=== PATIENT | female | born 1945 | race Caucasian/White ===

== ENCOUNTER 2019-12-17 10:29 | Inpatient (IN) | payer MEDICARE ==
[~2019-12-17] VITALS: Ht 157.5 cm; Wt 79.5 kg
[~2019-12-17 10:29] MED LIST: CALC3.7S5 NS; CHOL100014 PO; HYDR-2765 PO; IBUP200C PO; LISI1TAB20 PO; LISI1TAB37 PO; MULT-208 PO; SENN-30 PO; UBID10CA5 PO
--- NOTE | 2019-12-17 11:31 | RAD ---
HIP RIGHT 2V WITH PELVIS History: Reason: fell, right hip pain / Spl. Instructions: / History: Technique: AP view the pelvis and 2 additional views of the right hip. Comparison: None. Findings: Acute right superior pubic ramus fracture mildly displaced. Possible nondisplaced right inferior pubic ramus fracture. Normal alignment of the hips. Lower lumbar spondylosis. Impression: 1. Acute mildly displaced right superior pubic ramus fracture. 2. Possible nondisplaced right inferior pubic ramus fracture. Electronically signed by: Rian Varner DO (12/17/2019 11:29 AM) [id number]
--- NOTE | 2019-12-17 12:22 | RAD ---
CT PELVIS WO CONTRAST History: Reason: fell, right side pelvic pain / Spl. Instructions: / History: Comparison: CT abdomen pelvis August 03, 2013. Radiographs December 17, 2019 Technique: Noncontrast CT imaging was performed of the pelvis. Coronal and sagittal reconstructions were performed. Exposure: One or more of the following individualized dose reduction techniques were utilized for this examination: 1. Automated exposure control 2. Adjustment of the mA and/or kV according to patient size 3. Use of iterative reconstruction technique. Findings: Acute right periacetabular fracture extending into the right superior pubic ramus. Nondisplaced right inferior pubic ramus fracture. Acute right sacral alar nondisplaced fracture. Slight angulation of S2 anteriorly. Decompressed urinary bladder. Sigmoid colonic diverticulosis with mild infiltration of the pericolic fat. Normal appendix. No ascites. Normal alignment of the femoral heads. Grade 2 anterolisthesis L5 on S1. Advanced L5-S1 degenerative changes. Impression: 1. Acute right periacetabular fracture extending into the superior pubic ramus. 2. Acute nondisplaced right inferior pubic ramus fracture. 3. Acute right sacral alar nondisplaced fracture. 4. Sigmoid colonic diverticulosis with mild wall thickening and infiltration of the pericolic fat, may relate to prior inflammatory process. Recommend correlation with point tenderness to evaluate for acute diverticulitis. 5. Grade 2 anterolisthesis L5 on S1 with associated advanced spondylosis. Electronically signed by: Rian Varner DO (12/17/2019 12:19 PM) [id number]
[2019-12-17 12:34] LABS: BASO % 0 % (0-3); EOS % 0 % (0-3); HEMATOCRIT 39.1 % (36.0-47.0); HEMOGLOBIN 12.8 g/dL (12.0-15.5); LYMPH # 0.7 x10^3/uL (1.0-4.8); LYMPH % 4 % (24-48); MEAN CORPUSCULAR HEMOGLOBIN 26 pg (25-35); MEAN CORPUSCULAR HGB CONC 33 g/dL (31-37); MEAN CORPUSCULAR VOLUME 80 fL (79-100); MONO # 0.7 x10^3/uL (0.0-1.1); MONO % 4 % (0-9); NEUT # 15.5 x10^3/uL (1.8-7.7); NEUT % 92 % (31-73); PLATELET COUNT 215 x10^3/uL (140-400); RED BLOOD COUNT 4.91 x10^6/uL (3.50-5.40); RED CELL DISTRIBUTION WIDTH 19.2 % (11.5-14.5)
[2019-12-17] MEDS: IV NORMAL SALINE 1000ML BAG 1,000 ML IV SCH (12:40)
[2019-12-17] MEDS ORDERED: ONDANSETRON PF 4 MG/2 ML VIAL. IVP ONE (12:45)
[2019-12-17] MEDS ORDERED: ONDANSETRON PF 4 MG/2 ML VIAL. IV PRN (12:45)
[2019-12-17] MEDS ORDERED: fentaNYL PF VIAL 100 MCG/2 ML VIAL IVP ONE (12:45)
[2019-12-17 12:51] LABS: ALBUMIN 3.5 g/dL (3.4-5.0); CALCIUM 8.6 mg/dL (8.5-10.1); CREATININE 1.2 mg/dL (0.6-1.0); GFR 44.2; TOTAL BILIRUBIN 0.7 mg/dL (0.2-1.0); TOTAL PROTEIN 7.1 g/dL (6.4-8.2)
[2019-12-17 12:53] LABS: POTASSIUM 2.9 mmol/L (3.5-5.1)
[2019-12-17 13:04] LABS: % BANDS 4 % (0-9); % LYMPHS 4 % (24-48); % MONOS 3 % (0-10); % SEGS 89 % (35-66); ANISOCYTOSIS SLIGHT; PLT ESTIMATE ADEQUATE (ADEQUATE)
[2019-12-17 13:26] LABS: PROTHROMBIN TIME PATIENT 12.6 SEC (11.7-14.0)
[2019-12-17] MEDS ORDERED: POTASSIUM CL 40MEQ IN 0.9%NACL 1,000 ML IV ONE (13:45)
--- NOTE | 2019-12-17 15:35 | PHYS DOC ---
Past Medical History Past Medical History: Hypertension, Other Additional Past Medical Histor: CATARACT Past Surgical History: Cholecystectomy, Other Additional Past Surgical Histo: RIGHT EYE CATARACT, LEFT EYELID Smoking Status: Never Smoker Alcohol Use: Rarely Drug Use: None General Adult EDM: Chief Complaint: HIP PAIN HPI: HPI: Patient is a 74 year old female who was brought here by EMS due to right side pelvic pain after she fell at [facility] restaurant this morning. Patient had colonoscopy earlier this morning at [facility], she was on the way home, she [facility], she is stepped over a curb and tripped and fell down her right hip. Patient denies any head or neck injury, no back pain. Patient is complaining of pain inside her right groin area. Patient denies any numbness or weakness in her extremity, denies any bowel bladder incontinence. Patient is not on any blood thinner. Review of Systems: Review of Systems: Constitutional: Denies fever or chills. [] Eyes: Denies change in visual acuity. [] HENT: Denies nasal congestion or sore throat. [] Respiratory: Denies cough or shortness of breath. [] Cardiovascular: Denies chest pain or edema. [] GI: Denies abdominal pain, nausea, vomiting, bloody stools or diarrhea. [] : Denies dysuria. [] Musculoskeletal: Positive for right hip pain, right pelvic pain. Integument: Denies rash. [] Neurologic: Denies headache, focal weakness or sensory changes. [] Endocrine: Denies polyuria or polydipsia. [] Lymphatic: Denies swollen glands. [] Psychiatric: Denies depression or anxiety. [] Heart Score: Risk Factors: Risk Factors: DM, Current or recent (<one month) smoker, HTN, HLP, family history of CAD, obesity. Risk Scores: Score 0 - 3: 2.5% MACE over next 6 weeks - Discharge Home Score 4 - 6: 20.3% MACE over next 6 weeks - Admit for Clinical Observation Score 7 - 10: 72.7% MACE over next 6 weeks - Early Invasive Strategies Current Medications: Current Medications Medications (Trade) Dose Ordered Sig/Dc Start Time Stop Time Status Last Admin Dose Admin Fentanyl Citrate (Fentanyl 2ml Vial) 50 mcg PRN Q1HR PRN 12/17/19 12:45 12/18/19 12:44 Ondansetron HCl (Zofran) 4 mg PRN Q8HRS PRN 12/17/19 12:45 12/18/19 12:44 Potassium Chloride/Sodium Chloride 1,000 ml @ 75 mls/hr [id number] ONCE 12/17/19 13:45 12/18/19 03:04 12/17/19 13:56 75 MLS/HR Sodium Chloride 1,000 ml @ 75 mls/hr [id number] 12/17/19 12:40 12/18/19 12:39 12/17/19 12:40 75 MLS/HR Allergies: Allergies: Allergies Coded Allergies Type Severity Reaction Last Updated Verified No Known Drug Allergies 08/02/13 No Physical Exam: PE: Constitutional: Well developed, well nourished, no acute distress, non-toxic appearance. [] HENT: Normocephalic, atraumatic, bilateral external ears normal, oropharynx moist, no oral exudates, nose normal. [] Eyes: PERRLA, EOMI, conjunctiva normal, no discharge. [] Neck: Normal range of motion, no tenderness, supple, no stridor. [] Cardiovascular:Heart rate regular rhythm, no murmur [] Lungs & Thorax: Bilateral breath sounds clear to auscultation [] Abdomen: Bowel sounds normal, soft, no tenderness, no masses, no pulsatile masses. [] Skin: Warm, dry, no erythema, no rash. [] Back: No tenderness, no CVA tenderness. [] Extremities: No tenderness, no cyanosis, no clubbing, ROM intact, no edema. Right side pelvic is tender to palpation . Neurologic: Alert and oriented X 3, normal motor function, normal sensory function, no focal deficits noted. [] Psychologic: Affect normal, judgement normal, mood normal. [] Current Patient Data: Labs: Laboratory Tests Test 12/17/19 12:15 12/17/19 13:10 White Blood Count 17.0 x10^3/uL (4.0-11.0) H Red Blood Count 4.91 x10^6/uL (3.50-5.40) Hemoglobin 12.8 g/dL (12.0-15.5) Hematocrit 39.1 % (36.0-47.0) Mean Corpuscular Volume 80 fL (79-100) Mean Corpuscular Hemoglobin 26 pg (25-35) Mean Corpuscular Hemoglobin Concent 33 g/dL (31-37) Red Cell Distribution Width 19.2 % (11.5-14.5) H Platelet Count 215 x10^3/uL (140-400) Neutrophils (%) (Auto) 92 % (31-73) H Lymphocytes (%) (Auto) 4 % (24-48) L Monocytes (%) (Auto) 4 % (0-9) Eosinophils (%) (Auto) 0 % (0-3) Basophils (%) (Auto) 0 % (0-3) Neutrophils # (Auto) 15.5 x10^3/uL (1.8-7.7) H Lymphocytes # (Auto) 0.7 x10^3/uL (1.0-4.8) L Monocytes # (Auto) 0.7 x10^3/uL (0.0-1.1) Eosinophils # (Auto) 0.0 x10^3/uL (0.0-0.7) Basophils # (Auto) 0.0 x10^3/uL (0.0-0.2) Segmented Neutrophils % 89 % (35-66) H Band Neutrophils % 4 % (0-9) Lymphocytes % 4 % (24-48) L Monocytes % 3 % (0-10) Platelet Estimate Adequate (ADEQUATE) Anisocytosis Slight Sodium Level 136 mmol/L (136-145) Potassium Level 2.9 mmol/L (3.5-5.1) *L Chloride Level 99 mmol/L (98-107) Carbon Dioxide Level 28 mmol/L (21-32) Anion Gap 9 (6-14) Blood Urea Nitrogen 15 mg/dL (7-20) Creatinine 1.2 mg/dL (0.6-1.0) H Estimated GFR (Cockcroft-Gault) 44.2 BUN/Creatinine Ratio 13 (6-20) Glucose Level 166 mg/dL (70-99) H Calcium Level 8.6 mg/dL (8.5-10.1) Total Bilirubin 0.7 mg/dL (0.2-1.0) Aspartate Amino Transferase (AST) 28 U/L (15-37) Alanine Aminotransferase (ALT) 24 U/L (14-59) Alkaline Phosphatase 84 U/L (46-116) Total Protein 7.1 g/dL (6.4-8.2) Albumin 3.5 g/dL (3.4-5.0) Albumin/Globulin Ratio 1.0 (1.0-1.7) Prothrombin Time 12.6 SEC (11.7-14.0) Prothrombin Time INR 1.0 (0.8-1.1) Activated Partial Thromboplast Time 20 SEC (24-38) L Laboratory Tests 12/17/19 12:15 Laboratory Tests 12/17/19 12:15 Vital Signs: Vital Signs Date Time Temp Pulse Resp B/P (MAP) Pulse Ox O2 Delivery O2 Flow Rate FiO2 12/17/19 13:19 21 95 Room Air 12/17/19 10:35 98.2 84 137/61 (86) 98.2 EKG: EKG: [] Radiology/Procedures: Radiology/Procedures: [][address] [address] IMAGING REPORT Signed PATIENT: JOSHUA GAFFNEY ACCOUNT: [id number] : 1945 LOCATION: ER AGE: 74 SEX: F EXAM STATUS: PRE ER ORD. PHYSICIAN: STANTON BOURGEOIS DO REASON: fell, right hip pain PROCEDURE: HIP RIGHT 2V WITH PELVIS HIP RIGHT 2V WITH PELVIS History: Reason: fell, right hip pain / Spl. Instructions: / History: Technique: AP view the pelvis and 2 additional views of the right hip. Comparison: None. Findings: Acute right superior pubic ramus fracture mildly displaced. Possible nondisplaced right inferior pubic ramus fracture. Normal alignment of the hips. Lower lumbar spondylosis. Impression: 1. Acute mildly displaced right superior pubic ramus fracture. 2. Possible nondisplaced right inferior pubic ramus fracture. Electronically signed by: Rian Varner DO (12/17/2019 11:29 AM) [id number] DICTATED and SIGNED BY: RIAN VARNER DO DATE: 12/17/19 [id number] [place] [address] IMAGING REPORT Signed PATIENT: JOSHUA GAFFNEY ACCOUNT: [id number] : 1945 LOCATION: ER AGE: 74 SEX: F EXAM STATUS: REG ER ORD. PHYSICIAN: STANTON BOURGEOIS DO REASON: fell, right side pelvic pain PROCEDURE: CT PELVIS WO CONTRAST CT PELVIS WO CONTRAST History: Reason: fell, right side pelvic pain / Spl. Instructions: / History: Comparison: CT abdomen pelvis August 03, 2013. Radiographs December 17, 2019 Technique: Noncontrast CT imaging was performed of the pelvis. Coronal and sagittal reconstructions were performed. Exposure: One or more of the following individualized dose reduction techniques were utilized for this examination: 1. Automated exposure control 2. Adjustment of the mA and/or kV according to patient size 3. Use of iterative reconstruction technique. Findings: Acute right periacetabular fracture extending into the right superior pubic ramus. Nondisplaced right inferior pubic ramus fracture. Acute right sacral alar nondisplaced fracture. Slight angulation of S2 anteriorly. Decompressed urinary bladder. Sigmoid colonic diverticulosis with mild infiltration of the pericolic fat. Normal appendix. No ascites. Normal alignment of the femoral heads. Grade 2 anterolisthesis L5 on S1. Advanced L5-S1 degenerative changes. Impression: 1. Acute right periacetabular fracture extending into the superior pubic ramus. 2. Acute nondisplaced right inferior pubic ramus fracture. 3. Acute right sacral alar nondisplaced fracture. 4. Sigmoid colonic diverticulosis with mild wall thickening and infiltration of the pericolic fat, may relate to prior inflammatory process. Recommend correlation with point tenderness to evaluate for acute diverticulitis. 5. Grade 2 anterolisthesis L5 on S1 with associated advanced spondylosis. Electronically signed by: Rian Varner DO (12/17/2019 12:19 PM) [id number] DICTATED and SIGNED BY: RIAN VARNER DO DATE: 12/17/19 1219 Course & Med Decision Making: Course & Med Decision Making Pertinent Labs and Imaging studies reviewed. (See chart for details) Discussed with orthopedic doctor cotton tier Dr. Olivares, recommended admit for pain control. Dragon Disclaimer: Dragon Disclaimer: This electronic medical record was generated, in whole or in part, using a voice recognition dictation system. Departure Departure Impression: Primary Impression: Closed right acetabular fracture Additional Impressions: Closed pelvic fracture Hypokalemia Disposition: ADMITTED INPATIENT Admitting Physician: Christie Small Condition: STABLE Referrals: CHRISTIE SMALL MD (PCP) Justicifation of Admission Dx: Justifications for Admission: Justification of Admission Dx: Yes Fracture: Fracture STANTON BOURGEOIS DO Dec 17, 2019 15:35
[2019-12-17 16:50] VITALS: BP 143/69
[2019-12-17] MEDS ORDERED: LOSA1TAB22 PO (18:15)
[2019-12-17] MEDS ORDERED: ACET500T68 PO (18:15)
[2019-12-17] MEDS ORDERED: AMLO2.5T5 PO (18:15)
[2019-12-17] MEDS: fentaNYL PF VIAL 100 MCG/2 ML VIAL IV PRN (18:24)
[2019-12-17 19:00] VITALS: BP 124/73
[2019-12-17 23:00] VITALS: BP 147/70
[2019-12-18] MEDS: IV NORMAL SALINE 1000ML BAG 1,000 ML IV SCH (02:00)
[2019-12-18 03:00] VITALS: BP 120/56
[2019-12-18 07:15] VITALS: BP 119/51
--- NOTE | 2019-12-18 08:44 | PDOC ---
Provider Note Provider Note [id number] Justicifation of Admission Dx: Justifications for Admission: Justification of Admission Dx: Yes Fracture: Fracture CHRISTIE SMALL MD Dec 18, 2019 08:44
--- NOTE | 2019-12-18 08:58 | PDOC2 ---
CONSULT Date of Consult Date of Consult DATE: 12/18/19 TIME: 08:55 Reason for Consult Reason for Consult: Right-sided pelvis fractures Referring Physician Referring Physician: Pieter Identification/Chief Complaint Chief Complaint Right hip pain Source Source: Patient History of Present Illness Reason for Visit: Right hip pain Past Medical History Cardiovascular: HTN Pulmonary: No pertinent hx GI: No pertinent hx Heme/Onc: No pertinent hx Hepatobiliary: No pertinent hx Psych: No pertinent hx Musculoskeletal: low back pain Renal/: No pertinent hx Endocrine: No pertinent hx Past Surgical History Past Surgical History: Cholecystectomy, Cataract Removal Social History No ALCOHOL: rare Current Problem List Problem List Problems Medical Problems: (1) Closed pelvic fracture Status: Acute (2) Closed right acetabular fracture Status: Acute (3) Hypokalemia Status: Acute Current Medications Current Medications Current Medications Fentanyl Citrate (Fentanyl 2ml Vial) 50 mcg 1X ONCE IVP Last administered on 12/17/19at 13:19; Start 12/17/19 at 12:45; Stop 12/17/19 at 12:55; Status DC Ondansetron HCl (Zofran) 4 mg 1X ONCE IVP Last administered on 12/17/19at 13:18; Start 12/17/19 at 12:45; Stop 12/17/19 at 12:55; Status DC Ondansetron HCl (Zofran) 4 mg PRN Q8HRS PRN IV NAUSEA/VOMITING; Start 12/17/19 at 12:45; Stop 12/18/19 at 12:44 Fentanyl Citrate (Fentanyl 2ml Vial) 50 mcg PRN Q1HR PRN IV PAIN Last administered on 12/17/19at 18:24; Start 12/17/19 at 12:45; Stop 12/18/19 at 12:44 Sodium Chloride 1,000 ml @ 75 mls/hr [id number] IV Last administered on 12/18/19at 02:00; Start 12/17/19 at 12:40; Stop 12/18/19 at 08:43; Status DC Potassium Chloride/Sodium Chloride 1,000 ml @ 75 mls/hr [id number] ONCE IV Last administered on 12/17/19at 13:56; Start 12/17/19 at 13:45; Stop 12/18/19 at 08:43; Status DC Acetaminophen (Tylenol) 500 mg PRN Q6HRS PRN PO PAIN / TEMP > 100.3'F; Start 12/17/19 at 19:15 Amlodipine Besylate (Norvasc) 2.5 mg DAILY PO ; Start 12/18/19 at 09:00 Vitamin D (Vitamin D3) 1,000 unit DAILY PO ; Start 12/18/19 at 09:00 Losartan Potassium (Cozaar) 100 mg DAILY PO ; Start 12/18/19 at 09:00 Multivitamins (Thera M Plus) 1 tab DAILY PO ; Start 12/18/19 at 09:00 Potassium Chloride (Klor-Con) 10 meq TIDAFTMEAL PO ; Start 12/18/19 at 09:00; Stop 12/20/19 at 09:00 Hydrochlorothiazide (Hydrodiuril) 25 mg DAILY PO ; Start 12/18/19 at 09:00 Active Scripts Active Reported Acetaminophen 500 Mg Tablet 1 Tab PO PRN Q6HRS PRN 15 Days Amlodipine Besylate 2.5 Mg Tablet 2.5 Mg PO DAILY Losartan-Hctz 100-25 Mg Tab (Losartan/Hydrochlorothiazide) 1 Each Tablet 1 Tab PO DAILY Ibuprofen 200 Mg Capsule 200 Mg PO PRN Multi-Day Vitamins (Multivitamin) 1 Each Tablet 1 Each PO DAILY Vitamin D3 (Cholecalciferol (Vitamin D3)) 1,000 Unit Capsule 1,000 Unit PO DAILY Allergies Allergies: Coded Allergies: No Known Drug Allergies (Unverified , 08/02/13) ROS General: No: Chills, Night Sweats, Fatigue, Malaise, Appetite, Other PSYCHOLOGICAL ROS: No: Anxiety, Behavioral Disorder, Concentration difficultie, Decreased libido, Depression, Disorientation, Hallucinations, Hostility, Irritablity, Memory difficulties, Mood Swings, Obsessive thoughts, Physical abuse, Sexual abuse, Sleep disturbances, Suicidal ideation, Other Eyes: No Blurry vision, No Decreased vision, No Double vision, No Dry eyes, No Excessive tearing, No Eye Pain, No Itchy Eyes, No Loss of vision, No Photophobia, No Scotomata, No Uses contacts, No Uses glasses, No Other HEENT: No: Heacaches, Visual Changes, Hearing change, Nasal congestion, Nasal discharge, Oral lesions, Sinus pain, Sore Throat, Epistaxis, Sneezing, Snoring, Tinnitus, Vertigo, Vocal changes, Other ALLERGY AND IMMUNOLOGY: No: Hives, Insect Bite Sensitivity, Itchy/Watery Eyes, Nasal Congestion, Post Nasal Drip, Seasonal Allergies, Other Hematological and Lymphatic: No: Bleeding Problems, Blood Clots, Blood Transfusions, Brusing, Night Sweats, Pallor, Swollen Lymph Nodes, Other ENDOCRINE: No: Breast Changes, Galactorrhea, Hair Pattern Changes, Hot Flashes, Malaise/lethargy, Mood Swings, Palpitations, Polydipsia/polyuria, Skin Changes, Temperature Intolerance, Unexpected Weight Changes, Other Respiratory: No: Cough, Hemoptysis, Orthopnea, Pleuritic Pain, Shortness of breath, SOB with excertion, Sputum Changes, Stridor, Tachypnea, Wheezing, Other Cardiovascular: No Chest Pain, No Palpitations, No Orthopnea, No Paroxysmal Noc. Dyspnea, No Edema, No Lt Headedness, No Other Gastrointestinal: No Nausea, No Vomiting, No Abdominal Pain, No Diarrhea, No Constipation, No Melena, No Hematochezia, No Other Genitourinary: No Dysuria, No Frequency, No Incontinence, No Hematuria, No Retention, No Discharge, No Urgency, No Pain, No Flank Pain, No Other, No , No , No , No , No , No , No Musculoskeletal: Yes Gait Disturbance, Yes Joint Pain Neurological: No Behavorial Changes, No Bowel/Bladder ControlChng, No Confusion, No Dizziness, No Gait Disturbance, No Headaches, No Impaired Coord/balance, No Memory Loss, No Numbness/Tingling, No Seizures, No Speech Problems, No Tremors, No Visual Changes, No Weakness, No Other Skin: No Dry Skin, No Eczema, No Hair Changes, No Lumps, No Mole Changes, No Mottling, No Nail Changes, No Pruritus, No Rash, No Skin Lesion Changes, No Other, No Acne Physical Exam General: Alert, Oriented X3 HEENT: Atraumatic, EOMI Lungs: Other (Respirations are unlabored with symmetric chest rise) Heart: Regular rate Abdomen: Soft, No tenderness Extremities: No edema, Normal pulses Skin: No rashes Neuro: Normal speech, Strength at 5/5 X4 ext, Sensation intact Psych/Mental Status: Mental status NL, Mood NL MUSCULOSKELETAL: Other (On examination, she has no tenderness around her l ateral hip, she has some tenderness anteriorly, none over her sacrum and posterior pelvis. Normal motor and sensation are present in her bilateral lower extremities, no gross deformity. She has pain in her anterior pelvis and hip region with any movement of her hip on the right side.) Vitals VITALS Vital Signs Date Time Temp Pulse Resp B/P (MAP) Pulse Ox O2 Delivery O2 Flow Rate FiO2 12/18/19 08:00 Nasal Cannula 2.0 12/18/19 07:15 98.6 84 18 119/51 (73) 96 98.6 Labs Labs Laboratory Tests Test 12/17/19 12:15 12/17/19 13:10 White Blood Count 17.0 x10^3/uL (4.0-11.0) Red Blood Count 4.91 x10^6/uL (3.50-5.40) Hemoglobin 12.8 g/dL (12.0-15.5) Hematocrit 39.1 % (36.0-47.0) Mean Corpuscular Volume 80 fL (79-100) Mean Corpuscular Hemoglobin 26 pg (25-35) Mean Corpuscular Hemoglobin Concent 33 g/dL (31-37) Red Cell Distribution Width 19.2 % (11.5-14.5) Platelet Count 215 x10^3/uL (140-400) Neutrophils (%) (Auto) 92 % (31-73) Lymphocytes (%) (Auto) 4 % (24-48) Monocytes (%) (Auto) 4 % (0-9) Eosinophils (%) (Auto) 0 % (0-3) Basophils (%) (Auto) 0 % (0-3) Neutrophils # (Auto) 15.5 x10^3/uL (1.8-7.7) Lymphocytes # (Auto) 0.7 x10^3/uL (1.0-4.8) Monocytes # (Auto) 0.7 x10^3/uL (0.0-1.1) Eosinophils # (Auto) 0.0 x10^3/uL (0.0-0.7) Basophils # (Auto) 0.0 x10^3/uL (0.0-0.2) Segmented Neutrophils % 89 % (35-66) Band Neutrophils % 4 % (0-9) Lymphocytes % 4 % (24-48) Monocytes % 3 % (0-10) Platelet Estimate Adequate (ADEQUATE) Anisocytosis Slight Sodium Level 136 mmol/L (136-145) Potassium Level 2.9 mmol/L (3.5-5.1) Chloride Level 99 mmol/L (98-107) Carbon Dioxide Level 28 mmol/L (21-32) Anion Gap 9 (6-14) Blood Urea Nitrogen 15 mg/dL (7-20) Creatinine 1.2 mg/dL (0.6-1.0) Estimated GFR (Cockcroft-Gault) 44.2 BUN/Creatinine Ratio 13 (6-20) Glucose Level 166 mg/dL (70-99) Calcium Level 8.6 mg/dL (8.5-10.1) Total Bilirubin 0.7 mg/dL (0.2-1.0) Aspartate Amino Transf (AST/SGOT) 28 U/L (15-37) Alanine Aminotransferase (ALT/SGPT) 24 U/L (14-59) Alkaline Phosphatase 84 U/L (46-116) Total Protein 7.1 g/dL (6.4-8.2) Albumin 3.5 g/dL (3.4-5.0) Albumin/Globulin Ratio 1.0 (1.0-1.7) Prothrombin Time 12.6 SEC (11.7-14.0) Prothromb Time International Ratio 1.0 (0.8-1.1) Activated Partial Thromboplast Time 20 SEC (24-38) Laboratory Tests Test 12/17/19 12:15 12/17/19 13:10 White Blood Count 17.0 x10^3/uL (4.0-11.0) Red Blood Count 4.91 x10^6/uL (3.50-5.40) Hemoglobin 12.8 g/dL (12.0-15.5) Hematocrit 39.1 % (36.0-47.0) Mean Corpuscular Volume 80 fL (79-100) Mean Corpuscular Hemoglobin 26 pg (25-35) Mean Corpuscular Hemoglobin Concent 33 g/dL (31-37) Red Cell Distribution Width 19.2 % (11.5-14.5) Platelet Count 215 x10^3/uL (140-400) Neutrophils (%) (Auto) 92 % (31-73) Lymphocytes (%) (Auto) 4 % (24-48) Monocytes (%) (Auto) 4 % (0-9) Eosinophils (%) (Auto) 0 % (0-3) Basophils (%) (Auto) 0 % (0-3) Neutrophils # (Auto) 15.5 x10^3/uL (1.8-7.7) Lymphocytes # (Auto) 0.7 x10^3/uL (1.0-4.8) Monocytes # (Auto) 0.7 x10^3/uL (0.0-1.1) Eosinophils # (Auto) 0.0 x10^3/uL (0.0-0.7) Basophils # (Auto) 0.0 x10^3/uL (0.0-0.2) Segmented Neutrophils % 89 % (35-66) Band Neutrophils % 4 % (0-9) Lymphocytes % 4 % (24-48) Monocytes % 3 % (0-10) Platelet Estimate Adequate (ADEQUATE) Anisocytosis Slight Sodium Level 136 mmol/L (136-145) Potassium Level 2.9 mmol/L (3.5-5.1) Chloride Level 99 mmol/L (98-107) Carbon Dioxide Level 28 mmol/L (21-32) Anion Gap 9 (6-14) Blood Urea Nitrogen 15 mg/dL (7-20) Creatinine 1.2 mg/dL (0.6-1.0) Estimated GFR (Cockcroft-Gault) 44.2 BUN/Creatinine Ratio 13 (6-20) Glucose Level 166 mg/dL (70-99) Calcium Level 8.6 mg/dL (8.5-10.1) Total Bilirubin 0.7 mg/dL (0.2-1.0) Aspartate Amino Transf (AST/SGOT) 28 U/L (15-37) Alanine Aminotransferase (ALT/SGPT) 24 U/L (14-59) Alkaline Phosphatase 84 U/L (46-116) Total Protein 7.1 g/dL (6.4-8.2) Albumin 3.5 g/dL (3.4-5.0) Albumin/Globulin Ratio 1.0 (1.0-1.7) Prothrombin Time 12.6 SEC (11.7-14.0) Prothromb Time International Ratio 1.0 (0.8-1.1) Activated Partial Thromboplast Time 20 SEC (24-38) Images Images X-rays and CT were interpreted by myself. Reports were reviewed. She has a right pubic root fracture, right inferior ramus fracture, nondisplaced sacral fracture Assessment/Plan Assessment/Plan Given her injuries, I recommended toe-touch weightbearing, with PT assessment and OT assessment as well. I would anticipate she will need rehab given she lives alone. I would also recommend anticoagulation. PAOLA SCRUGGS II, MD Dec 18, 2019 08:58
--- NOTE | 2019-12-18 09:39 | HP ---
ADMIT DATE: CHIEF COMPLAINT: Fall. HISTORY OF PRESENT ILLNESS: This 74-year-old white female had just completed a colonoscopy and was in a restaurant, tripped and fell and landed hard on her rear end. She had pain and came to the ER and had a right-sided pelvic fracture and sacral fracture. Dr. Maki seen her and recommended limited activity and rehabilitation, and she is stable with no other complaints at this time. Potassium was low and has been replaced with some IV so far. PAST HISTORY: Listed per the chart. MEDICATIONS: Listed per the chart. ALLERGIES: No allergies. No other serious medical problems. SOCIAL HISTORY: Single, employed, nondrinker, nonsmoker. FAMILY HISTORY: Unremarkable. REVIEW OF SYSTEMS: No other complaints. OBJECTIVE: ENT: She has left-sided ptosis. Otherwise, unremarkable. NECK: No masses, nodes or bruits. LUNGS: Clear. CARDIOVASCULAR: Regular rate. No irregular beat or murmur. ABDOMEN: Benign and nontender. Pelvis is tender in the right groin area. EXTREMITIES: Right leg motion was not tested due to pain. Extremities show good pedal pulses. NEUROLOGIC: Physiologic, nonfocal. ASSESSMENT: Fall with secondary fracture of the right superior and inferior pubic ramus and sacrum. She has mild hypokalemia, likely secondary to colonoscopy prep. PLAN: Replace potassium orally. Add low dose Xarelto for DVT prophylaxis. Rehab will be needed. CHRISTIE SMALL MD DR: MICHELE/casandra JOB#: [id number] / [id number]
[2019-12-18] MEDS: POTASSIUM CHLORIDE 10 MEQ TABLET.ER. PO SCH ×3 (10:03→17:13)
[2019-12-18] MEDS: CHOLECALCIFEROL (VITAMIN D3) 1,000 UNIT TABLET PO SCH (10:04)
[2019-12-18] MEDS: LOSARTAN POTASSIUM 50 MG TABLET. PO SCH (10:04)
[2019-12-18] MEDS: hydroCHLOROthiazide 25 MG TABLET PO SCH (10:04)
[2019-12-18] MEDS: MULTIVITAMIN with MINERAL TABLET. PO SCH (10:04)
[2019-12-18] MEDS: amLODIPine BESYLATE 5 MG TABLET PO SCH (10:04)
[2019-12-18] MEDS: fentaNYL PF VIAL 100 MCG/2 ML VIAL IV PRN (10:05)
[2019-12-18 11:04] VITALS: BP 131/55
--- NOTE | 2019-12-18 11:29 | NUR ---
SW following. Discussed with RN, pt from home alone, non surgical. PT/OT ordered. SW will continue to follow. COVID-19 pending.
[2019-12-18] MEDS: ACETAMINOPHEN 500 MG TABLET PO PRN (13:31)
[2019-12-18 15:09] VITALS: BP 119/51
[2019-12-18] MEDS ORDERED: ENOXAPARIN 40 MG/0.4 ML SYRINGE. SQ SCH (16:00)
[2019-12-18] MEDS: HYDROcodone/APAP 5/325MG 1 TAB TABLET PO PRN (17:13)
[2019-12-18 19:00] VITALS: BP 111/59
[2019-12-18 23:00] VITALS: BP 119/51
[2019-12-19] MEDS: ACETAMINOPHEN 500 MG TABLET PO PRN (02:43)
[2019-12-19 03:00] VITALS: BP 102/52
[2019-12-19 07:00] VITALS: BP 111/59
--- NOTE | 2019-12-19 08:02 | PDOC ---
Provider Note Provider Note no new problems, pain ok- rehab when available Justicifation of Admission Dx: Justifications for Admission: Justification of Admission Dx: Yes Fracture: Fracture CHRISTIE SMALL MD Dec 19, 2019 08:02
[2019-12-19] MEDS ORDERED: ANTI-COAG MONITOR BY PHARMACY. MC PRN (08:45)
--- NOTE | 2019-12-19 09:17 | NUR ---
ELISE following. Discussed with RN, PT/OT to work with pt today. Pt will have 3 midnights on Tuesday12/21/2019 for transfer to SNU, if needed. ELISE will continue to follow. Addendum: 12/19/19 at 1515 by FLO OLIVARES PT/OT recommending SNU. ELISE met with pt (no isolation precautions at the time), pt requested ELISE contactMadonna ([phone]) to discuss SNU options. ELISE spoke with Madonna, she wanted ELISE to find out about COVID-19 at [facility], [facility], and [facility]. ELISE contacted [facility], they do not have any beds available until mid next week. [facility] advised of the one staff member who was positive, and everyone in the building testing negative, two week quarantine will be completed tomorrow (12/20/2019). [facility] has not responded to ELISE. ELISE notified Madonna of above information, she would like ELISE to call when [facility] responds so she can make a decision. ELISE will continue to follow.
[2019-12-19] MEDS: CHOLECALCIFEROL (VITAMIN D3) 1,000 UNIT TABLET PO SCH (09:28)
[2019-12-19] MEDS: LOSARTAN POTASSIUM 50 MG TABLET. PO SCH (09:29)
[2019-12-19] MEDS: hydroCHLOROthiazide 25 MG TABLET PO SCH (09:29)
[2019-12-19] MEDS: HYDROcodone/APAP 5/325MG 1 TAB TABLET PO PRN ×3 (09:29→17:39)
[2019-12-19] MEDS: POTASSIUM CHLORIDE 10 MEQ TABLET.ER. PO SCH ×3 (09:29→17:39)
[2019-12-19] MEDS: amLODIPine BESYLATE 5 MG TABLET PO SCH (09:29)
[2019-12-19] MEDS: MULTIVITAMIN with MINERAL TABLET. PO SCH (09:29)
[2019-12-19 10:19] LABS: BASO % 0 % (0-3); EOS # 0.2 x10^3/uL (0.0-0.7); EOS % 2 % (0-3); HEMATOCRIT 35.5 % (36.0-47.0); HEMOGLOBIN 11.9 g/dL (12.0-15.5); LYMPH % 11 % (24-48); MEAN CORPUSCULAR HEMOGLOBIN 27 pg (25-35); MEAN CORPUSCULAR HGB CONC 34 g/dL (31-37); MEAN CORPUSCULAR VOLUME 80 fL (79-100); MONO # 0.7 x10^3/uL (0.0-1.1); MONO % 7 % (0-9); NEUT # 7.8 x10^3/uL (1.8-7.7); NEUT % 80 % (31-73); PLATELET COUNT 162 x10^3/uL (140-400); RED BLOOD COUNT 4.45 x10^6/uL (3.50-5.40); RED CELL DISTRIBUTION WIDTH 18.9 % (11.5-14.5); WHITE BLOOD COUNT 9.7 x10^3/uL (4.0-11.0)
[2019-12-19 10:42] LABS: CALCIUM 8.6 mg/dL (8.5-10.1); GFR 54.5; POTASSIUM 3.5 mmol/L (3.5-5.1)
[2019-12-19 11:00] VITALS: BP 158/56
[2019-12-19 15:00] VITALS: BP 112/63
--- NOTE | 2019-12-19 16:10 | NUR ---
SS following up with discharge planning. Brandy OLIVARES, received phone contact from Madonna requesting referral be phoned and faxed to [facility], ; fax [phone]. SS phoned and faxed referral to [facility]. SS will await acceptance decision and will proceed accordingly.
[2019-12-19] MEDS ORDERED: RIVAROXABAN 10 MG TABLET. PO SCH (17:00)
[2019-12-19] MEDS ORDERED: POLYETHYLENE GLYCOL 3350 17 GM PACKET. PO PRN (18:00)
[2019-12-19 19:00] VITALS: BP 110/59
[2019-12-19 23:00] VITALS: BP 131/58
[2019-12-20 03:00] VITALS: BP 128/61
[2019-12-20 07:00] VITALS: BP 122/41
--- NOTE | 2019-12-20 08:09 | PDOC ---
Provider Note Provider Note stable , bp good, will add miralax- K+ better , rest same Justicifation of Admission Dx: Justifications for Admission: Justification of Admission Dx: Yes Fracture: Fracture CHRISTIE SMALL MD Dec 20, 2019 08:09
[2019-12-20] MEDS: CHOLECALCIFEROL (VITAMIN D3) 1,000 UNIT TABLET PO SCH (08:13)
[2019-12-20] MEDS: POTASSIUM CHLORIDE 10 MEQ TABLET.ER. PO SCH (08:13)
[2019-12-20] MEDS: MULTIVITAMIN with MINERAL TABLET. PO SCH (08:13)
[2019-12-20] MEDS: hydroCHLOROthiazide 25 MG TABLET PO SCH (08:13)
[2019-12-20] MEDS: LOSARTAN POTASSIUM 50 MG TABLET. PO SCH (08:14)
[2019-12-20] MEDS ORDERED: MAGNESIUM HYDROXIDE 2,400 MG/30 ML ORAL.SUSP. PO PRN (08:15)
[2019-12-20] MEDS: amLODIPine BESYLATE 5 MG TABLET PO SCH (08:16)
--- NOTE | 2019-12-20 08:16 | SNU/HH DC ---
DISCHARGE ORDERS DISCHARGE INFORMATION: FINAL DIAGNOSIS Problems Medical Problems: (1) Closed pelvic fracture Status: Acute (2) Closed right acetabular fracture Status: Acute (3) Hypokalemia Status: Acute CONDITION ON DISCHARGE: Stable CODE STATUS: Code Status: Full PRISON: SNF STAY <30 DAYS: Yes POST DISCHARGE ORDERS: ACTIVITY ORDERS: Activity as tolerated DIET AFTER DISCHARGE: Regular DISCHARGE MEDICATIONS: Home Meds Reported Medications Acetaminophen (ACETAMINOPHEN) 500 Mg Tablet, 1 TAB PO PRN Q6HRS PRN for pain or fever for 15 Days, #60 TAB 0 Refills 12/17/19 Amlodipine Besylate (AMLODIPINE BESYLATE) 2.5 Mg Tablet, 2.5 MG PO DAILY for htn, TAB 12/17/19 Losartan/Hydrochlorothiazide (LOSARTAN-HCTZ 100-25 MG TAB) 1 Each Tablet, 1 TAB PO DAILY for HTN, #30 TAB 5 Refills 12/17/19 Ibuprofen (IBUPROFEN) 200 Mg Capsule, 200 MG PO PRN 08/02/13 Multivitamin (MULTI-DAY VITAMINS) 1 Each Tablet, 1 EACH PO DAILY 08/02/13 Cholecalciferol (Vitamin D3) (VITAMIN D3) 1,000 Unit Capsule, 1000 UNIT PO DAILY 08/02/13 Discontinued Reported Medications Lisinopril/Hydrochlorothiazide (LISINOPRIL-HCTZ 20-12.5 MG TAB) 1 Each Tablet, 1 EACH PO DAILY 08/08/13 Sennosides/Docusate Sodium (MARY LOU-COLACE TABLET) 1 Each Tablet, 1 EACH PO BID 08/02/13 Calcitonin,[place],Synthetic (CALCITONIN-SALMON) 3.7 Ml [place].pump, 3.7 ML NS DAILY 08/02/13 Hydrocodone Bit/Acetaminophen (HYDROCODONE-APAP 7.5-325 ) 1 Each Tablet, 1 EACH PO Q4HRS PRN 08/02/13 Ubidecarenone (CO Q-10) 10 Mg Capsule, 10 MG PO DAILY 08/02/13 CHRISTIE SMALL MD Dec 20, 2019 08:16
--- NOTE | 2019-12-20 08:19 | NUR ---
Given PRN dose of Miralax instead of scheduled unavailable at that time
--- NOTE | 2019-12-20 08:19 | PDOC ---
Provider Note Provider Note [id number] Justicifation of Admission Dx: Justifications for Admission: Justification of Admission Dx: Yes Fracture: Fracture CHRISTIE SMALL MD Dec 20, 2019 08:19
--- NOTE | 2019-12-20 08:30 | DS ---
DATE OF DISCHARGE: 12/20/2019 HOSPITAL SUMMARY: A 74-year-old white female who fell after a colonoscopy, has a fracture of the right superior and inferior pubic ramus of her pelvis as well as the sacrum. Potassium was low at 2.9 and came up with replacement to a normal level. COVID test was negative and imaging studies supported the pelvic fracture findings. She was treated with bed rest. Activity as tolerated, hydrocodone and potassium replacement was done and [facility] has accepted her and she is transferred today for further care. FINAL DIAGNOSES: 1. Traumatic fracture of the right pelvis and sacrum. 2. Hypokalemia secondary to colonoscopy prep. OPERATIONS, PROCEDURES, COMPLICATIONS: None. CONSULTATIONS: Dr. Saldana. DISPOSITION: Meds remain the same as per current use Xarelto 10 mg daily for DVT prophylaxis. Activity as tolerated and follow up with Dr. Saldana and Dr. Stapleton as needed. CHRISTIE STAPLETON MD DR: MICHELE/casandra JOB#: [id number] / [id number]
[2019-12-20] MEDS ORDERED: POLYETHYLENE GLYCOL 3350 17 GM PACKET. PO SCH (09:00)
[2019-12-20] MEDS: HYDROcodone/APAP 5/325MG 1 TAB TABLET PO PRN ×2 (09:18→15:00)
[2019-12-20 11:00] VITALS: BP 112/62
--- NOTE | 2019-12-20 14:28 | NUR ---
Toe touch for [address] Olivares
--- NOTE | 2019-12-20 15:02 | NUR ---
Transferred to [facility] per w/c transportation, medicated with Lortab for transfer, belongings taken with her, family member notified by [employer]
== END 2019-12-20 15:46 | DRG 535 ==
LOC: ER 10:29 → 4 NORTH 12:36
PROVIDERS: ADMIT Family Medicine; ATTEND Family Medicine
DX: S32.591A Other specified fracture of right pubis, initial encounter for closed fracture (principal); S32.401A Unspecified fracture of right acetabulum, initial encounter for closed fracture; S32.10XA Unspecified fracture of sacrum, initial encounter for closed fracture; E87.6 Hypokalemia; I10 Essential (primary) hypertension; K57.30 Diverticulosis of large intestine without perforation or abscess without bleeding; M43.16 Spondylolisthesis, lumbar region; Z90.49 Acquired absence of other specified parts of digestive tract; Z60.2 Problems related to living alone; Z20.828 Contact with and (suspected) exposure to other viral communicable diseases; W01.0XXA Fall on same level from slipping, tripping and stumbling without subsequent striking against object, initial encounter; Y93.89 Activity, other specified; Y92.89 Other specified places as the place of occurrence of the external cause; Y99.8 Other external cause status
CPT/HCPCS: 36415; 72192; 73502; 80048; 80053; 85007; 85025; 85610; 85730; 96365; 96366; 96375; J1650; J2405; J3010; J3480; J7030; 97530-GO; 97530-GP; 97535-GO; 99285-25; G0378; U0003-CS